=== PATIENT | female | born 1995 | race Caucasian/White ===

== ENCOUNTER 2018-04-05 09:54 | Emergency (ER) | payer OTHER ==
[2018-04-05 10:09] VITALS: Ht 162.6 cm
[2018-04-05 11:48] VITALS: BP 127/75
== END 2018-04-05 11:48 | disposition home or self-care (01) ==
LOC: ED 09:54
DX: S63.501A Unspecified sprain of right wrist, initial encounter (principal); J45.909 Unspecified asthma, uncomplicated; Z90.89 Acquired absence of other organs; Z88.0 Allergy status to penicillin; Z91.018 Allergy to other foods; W17.89XA Other fall from one level to another, initial encounter; Y93.89 Activity, other specified; Y92.89 Other specified places as the place of occurrence of the external cause; Y99.8 Other external cause status
CPT/HCPCS: Q0092

== ENCOUNTER 2018-05-18 10:36 | Emergency (ER) | payer OTHER ==
[~2018-05-18] VITALS: Ht 162.6 cm; Wt 70.3 kg
[2018-05-18 10:44] VITALS: Ht 162.6 cm; Wt 70.3 kg
[2018-05-18 11:25] LABS: BASOPHIL % 0.6 % (0-2); PLATELET COUNT 275 x10^3mcL (130-400); RED CELL DISTRIBUTION WIDTH 13.7 % (11.5-14.5)
[2018-05-18 11:26] LABS: CALCIUM 8.9 mg/dL (8.5-10.1); CARBON DIOXIDE 26.3 mmol/L (21-32); CHLORIDE SERUM 103 mmol/L (98-107); CREATININE SERUM 0.8 mg/dL (0.6-1.0); GFR1 > 60 mL/min; GLUCOSE SERUM 91 mg/dL (74-106); SODIUM SERUM 139 mmol/L (136-145)
[2018-05-18 11:39] LABS: ALBUMIN 4.1 g/dL (3.4-5.0); ALKALINE PHOSPHATASE 87 U/L (46-116); ALT/SGPT 16 U/L (14-59); AST/SGOT 6 U/L (15-37); BILIRUBIN TOTAL 0.46 mg/dL (0.20-1.00); T4(THYROXINE) 6.4 ug/dL (4.7-13.3)
[2018-05-18 13:31] LABS: AMPHETAMINE QUAL UR NONE DETECTED (See below)
[2018-05-18 16:40] VITALS: BP 112/63
== END 2018-05-18 17:37 | disposition home or self-care (01) ==
LOC: ED 10:36
PROVIDERS: Emergency Medicine
DX: G40.209 Localization-related (focal) (partial) symptomatic epilepsy and epileptic syndromes with complex partial seizures, not intractable, without status epilepticus (principal); R51 Headache; R53.1 Weakness; R20.2 Paresthesia of skin; J45.909 Unspecified asthma, uncomplicated; Z88.0 Allergy status to penicillin; Z91.018 Allergy to other foods; Z90.89 Acquired absence of other organs; Z87.42 Personal history of other diseases of the female genital tract
CPT/HCPCS: 36415

== ENCOUNTER 2018-12-06 17:00 | Emergency (ER) | payer OTHER ==
[~2018-12-06] VITALS: Ht 162.6 cm; Wt 73.9 kg
[2018-12-06 17:06] VITALS: Ht 162.6 cm; Wt 73.9 kg
[2018-12-06 18:01] LABS: BASOPHIL % 0.5 % (0-2); PLATELET COUNT 312 x10^3mcL (130-400)
[2018-12-06 18:21] LABS: CALCIUM 9.6 mg/dL (8.5-10.1); CARBON DIOXIDE 24.8 mmol/L (21-32); CHLORIDE SERUM 104 mmol/L (98-107); CREATININE SERUM 0.8 mg/dL (0.6-1.0); GFR1 > 60 mL/min; GLUCOSE SERUM 96 mg/dL (74-106); POTASSIUM SERUM 4.1 mmol/L (3.5-5.1); SODIUM SERUM 142 mmol/L (136-145)
[2018-12-06 18:26] LABS: AMPHETAMINE QUAL UR NONE DETECTED (See below)
[2018-12-06 18:26] LABS: ALBUMIN 4.3 g/dL (3.4-5.0); ALKALINE PHOSPHATASE 83 U/L (46-116); ALT/SGPT 13 U/L (14-59); AST/SGOT 5 U/L (15-37); BILIRUBIN TOTAL 0.29 mg/dL (0.20-1.00); TOTAL PROTEIN, SERUM 8.3 g/dL (6.4-8.2)
[2018-12-06 18:38] LABS: FREE T4 1.17 ng/dL (0.76-1.46); FREE THYROXINE INDEX 2.8 ug/dL (1.4-4.5); T4(THYROXINE) 7.9 ug/dL (4.7-13.3)
[2018-12-06 19:29] LABS: T3 TOTAL 1.24 ng/mL
[2018-12-06 22:57] VITALS: BP 127/88
== END 2018-12-06 22:57 | disposition home or self-care (01) ==
LOC: ED 17:00
PROVIDERS: Emergency Medicine
DX: R55 Syncope and collapse (principal); J45.909 Unspecified asthma, uncomplicated; K29.70 Gastritis, unspecified, without bleeding; Z88.8 Allergy status to other drugs, medicaments and biological substances; Z88.0 Allergy status to penicillin; Z90.89 Acquired absence of other organs
CPT/HCPCS: 84439; J2405; J2765; J3490; J7030; Q0092

== ENCOUNTER 2019-04-18 16:29 | Observation (INO) | payer OTHER ==
[~2019-04-18] VITALS: Ht 162.6 cm; Wt 73.9 kg
[2019-04-18 16:52] VITALS: Ht 162.6 cm; Wt 73.9 kg
--- NOTE | 2019-04-18 16:53 | NUR ---
PER PT STS THAT HE HAS AN "ABSENT SEIZURE" THIS AM AT 0900, WITNESSED BY HER FRIEND LASTING 60SEC, 1100 SEIZURE, 1200 SEIZURE, 1400 SEIZURE PT DID NOT HIT HEAD BUT STS THAT HE DOES NOT REMEMBER THE "ABSENT" SEIZURES. PT DENIES HAVIGN SEIZURES IN THE PAST. PT IS ALERT AND ORIENTED, SPEAKING IN CLEAR AND FULL SENTENCES. PT STS THAT SHE CAME TO THE ER DUE TO HER HAVING NUBNESS ON THE RT SIDE WITH "CHEST SHARPNESS" TO THE RT SIDE OF RIBS. PT [employer] WEAKNESS TO RT ARM/LEG. PERRRON NOTED. PT STS THAT SHE FEELS THAT SHE HAS BLURRY VISION TO RT EYE. PT PLACED ON FULL CM. NO DISTRESS NOTED. VSS. RESP E/U. DR. RANDOLPH AT BEDSIDE. WILL CONTINUE TO MONITOR.
[2019-04-18 17:55] LABS: microscopic required? YES; urine erythrocyte NEGATIVE (NEGATIVE)
[2019-04-18 18:10] LABS: BASOPHIL % 0.3 % (0-2); PLATELET COUNT 298 x10^3mcL (130-400); RED CELL DISTRIBUTION WIDTH 14.1 % (11.5-14.5)
[2019-04-18 18:11] LABS: CALCIUM 8.5 mg/dL (8.5-10.1); CARBON DIOXIDE 25.7 mmol/L (21-32); CHLORIDE SERUM 104 mmol/L (98-107); CREATININE SERUM 0.7 mg/dL (0.6-1.0); GFR1 > 60 mL/min; GLUCOSE SERUM 82 mg/dL (74-106); POTASSIUM SERUM 3.6 mmol/L (3.5-5.1); SODIUM SERUM 140 mmol/L (136-145)
[2019-04-18 18:16] LABS: ALKALINE PHOSPHATASE 78 U/L (46-116); ALT/SGPT 15 U/L (14-59); AST/SGOT 6 U/L (15-37); BILIRUBIN TOTAL 0.2 mg/dL (0.20-1.00); TOTAL PROTEIN, SERUM 8.1 g/dL (6.4-8.2)
--- NOTE | 2019-04-18 18:56 | NUR ---
PT TAKEN TO CT.
--- NOTE | 2019-04-18 19:13 | NUR ---
REPROT GIVEN TO SRAVAN TIPTON, TO ASSUME CARE OF PT.
--- NOTE | 2019-04-18 19:16 | NUR ---
PT BACK FROM CT VIA WHEELCHAIR. PT IN NAD, BREATHING EVEN AND UNLABORED. PT AWAKE AND ALERT. CM AND [address] WILL CONTINUE TO MONITOR.
--- NOTE | 2019-04-18 19:26 | NUR ---
PT C/O PAIN 10/10 IN BACK OF HEAD AND NECK. PT SPEAKING FULL CLEAR SENTENCES. PT NOTED SITTING ON GURNEY IN NAD WHILE PLAYING ON CELLULAR DEVICE. CM AND [address] WHITTEN MADE AWARE. NO FURTHER ORDERS AT THIS TIME. WILL CONTINUE TO MONITOR.
[2019-04-18 19:56] LABS: AMPHETAMINE QUAL UR NONE DETECTED (See below)
--- NOTE | 2019-04-18 19:58 | NUR ---
PT AMBULATED TO RESTROOM WITH STEADY GAIT.
[2019-04-18] MEDS ORDERED: VENTOLIN H0.09 MG/A1 INH (20:25)
--- NOTE | 2019-04-18 20:32 | NUR ---
PT RESTING ON GURNEY IN NAD. PT A&0X4, SPEAKING FULL CLEAR SENTENCES. PT BREATHING EVEN AND UNLABORED. CM AND [address] WILL CONTINUE TO MONITOR.
--- NOTE | 2019-04-18 21:40 | NUR ---
PT UP TO USE RESTROOM. PT AMULATES TO RESTROOM WITH STEADY GAIT. PT STILL NOTED LIMPING ON RIGHT LEG.
--- NOTE | 2019-04-18 22:34 | NUR ---
REPORT CALLED TO ILEANA TIPTON
--- NOTE | 2019-04-18 23:05 | NUR ---
PT TRANSFERED [facility]IA [facility] BY JOHANNY RN AND ALPHONSE EMT. PT A&0X4, SPEAKING FULL CLEAR SENTENCES. PT BREATHING EVEN AND UNLABORED. TRANSPORT CM IN PLACE. PT VERBALIZED UNDERSTANDING OF PLAN OF CARE. IV INTACT AND FLUSHES WITHOUT COMPLICATIONS. BELONGINGS SENT WITH PT.
[2019-04-19] VITALS (7 sets, daily range): BP systolic 99–120; BP diastolic 45–73
--- NOTE | 2019-04-19 00:34 | NUR ---
RECEIVED PT FROM ER, PT ADMIT FOR STROKE LIKE SYMPTOMS, MIGRAINE, PT IS A/O X4, VERBAL RESPONSIVE, RIGHT SIDE FACIAL DROOP NOTED. C/O RIGHT FACIAL NUMBNESS, RIGHT SIDE WEAKNESS NOTED. PT UNABLE TO LIFT RIGHT ARM OR RIGHT LEG. PT IS ON TELE 22, NSR, DENY ANY CHEST PAIN OR DISCOMFORT, BOWEL SOUND PRESENT ALL 4 QUADRANTS, NO DISTENTION, NO TENDER. PEDAL PULSE PRESENT BOTH FOOT, IV AT LEFT AC, NO LEAKING, NO INFILTRATION. ALL ADLS ASSIST, ALL NEED MET, CALL LIGHT IN REACH, WILL CONTINUE TO MONITOR.
--- NOTE | 2019-04-19 01:09 | NUR ---
HANGED INITIAL DOSE OF ROCEPHIN 1 GM, NO ADV REACTION, TYLENOL 500 MG PO GIVEN PER PRN ORDER FOR HEADACHE, CONT TO MONITOR.
--- NOTE | 2019-04-19 06:21 | NUR ---
PT SLEPT WELL, DENIES HEADACHE OR DIZZINESS, STILL WITH RT FACIAL DROOPING AND WEAKNESS. MRI ORDER SCHED BY RN ENCHILADA MAKER AWAITING FOR CALL BACK.
--- NOTE | 2019-04-19 07:05 | NUR ---
AAO X4.C/O H/A AT 8/10 PAIN SCALE.LUNGS CLEAR.ON SR ON THE MONITOR.HR=71.C/O R ARM WEAKNESS.IV SALINE LOCKED.CALL LIGHT WITHIN REACH.INSTRUCTED TO CALL FOR ANY PAIN/DISCOMFORT.WILL CONTINUE TO MONITOR PT.
--- NOTE | 2019-04-19 09:23 | NUR ---
GAVE PT IMITREX ORDERED X1 FOR C/O PERSISTENT H/A.WILL RECHECK AFTER AND HOUR.
--- NOTE | 2019-04-19 10:06 | NUR ---
SPOKE WITH OSTOMY CARE NURSE, PER MD DR BRANDON AUTHORIZATION APPROVED FOR MRI BRAIN. RADIOLOGY MADE AWARE, SET FOR THIS AFTERNOON.
[2019-04-19] MEDS ORDERED: IMITREX50 MG PO (10:13)
--- NOTE | 2019-04-19 10:15 | NUR ---
MRI QUESTIONS COMPLETED.
--- NOTE | 2019-04-19 10:23 | NUR ---
RECHECKED PAIN LEVEL CLAIMS H/A IS MORE TOLERABLE.WAS RELIEVED BY IMITREX.
[2019-04-19] MEDS ORDERED: FIORICET1 CAP PO (11:02)
--- NOTE | 2019-04-19 13:49 | NUR ---
GAVE PT FIORICET 1 TAB ORDERED PRN FOR C/O PERSISTENT H/A.ALSO INFORMED HER THAT MRI WILL BE DONE TONIGHT AT 9 PM INFORMED BY SOLAR RESOURCE ASSESSOR.
--- NOTE | 2019-04-19 14:19 | NUR ---
RECHECKED PT'S H/A.CLAIMS TO FEEL A LOT BETTER.ALSO INFORMED RN MORE EFFECTIVE THAN IMMETREX.
--- NOTE | 2019-04-19 16:00 | NUR ---
ASKED VAMP PRESSER IF IT'S OK TO DO SCAN EVEN THOUGH PT HAS DENTAL BRACE. PER VAMP PRESSER IS OK TO DO MRI.
--- NOTE | 2019-04-19 18:36 | NUR ---
NO SIGNIFICANT CHANGE NOTED.WILL ENDORSE TO NEXT SHIFT.
--- NOTE | 2019-04-19 20:00 | NUR ---
PT A/A/O X4. DENIES DIZZINESS C/O MILD HEADACHE. DENIES NEED FOR MEDICATION THUS FAR. NO FACIAL DROOPING NOTED. RIGHT SIDED WEAKNESS NOTED. RIGHT HAND TACKER ELASTIC BAND WEAKER THAN LEFT. BREATH SOUNDS CLEAR. BREATHING EVEN AND UNLABORED ON ROOM AIR. DENIES CHEST PAIN AND PRESSURE. BOWEL SOUNDS ACTIVE. NO C/O N/V AND ABD PAIN. IV HEPLOCK ON THE LAC. MADE PT COMFORTABLE. PLACED CALL LIGHT WITH IN REACH. WILL CONTINUE TO MONITOR.
--- NOTE | 2019-04-19 23:45 | NUR ---
PT C/O SEVERE HEADACHE. GAVE PT FIORECET PO. PT TOLERATED IT WELL. WILL CONTINUE TO MONITOR.
[2019-04-20 04:07] VITALS: BP 102/57
--- NOTE | 2019-04-20 06:04 | NUR ---
PT RESTING WITH EYES CLOSED. EASILY AROUSABLE WITH VERBAL STIMULI. NO C/O HEADACHE THUS FAR. MADE PT COMFORTABLE. WILL ENDORSE TO THE AM NURSE ACCORDINGLY.
--- NOTE | 2019-04-20 07:20 | NUR ---
RECEIVED PT IN BED A/A/OX4 C/O PERSISTANT MEJÍA. REPORTS BLURRED VISION AND DIZZINESS WITH ACTIVITY. NOTED WITH RT SIDED WEAKNESS WITH WEAK HAND PULP OPERATOR AND PLANTER FLEXION ON RT FOOT. REPORTS NUMBNESS TO RT SIDED ON UPPER EXTREMETY FROM ELBOW DOWN. PT AMBULATES WITH SHUFFELD GATE. NO FACIAL DROOP OR SPEECH IMPAIREMENT NOTED. RESP EVEN AND UNLABORED WITH CLEAR BS BILAT. DENIES ANY SOB/CP/PRESSURE AT THIS TIME. NSR ON TELE. NO EDEMA NOTED. ABD SOFT, NONTENDER WITH ACTIVE BS X4. DENIES ANY N/V AT THIS TIME. VOIDING FREELY. CALL LIGHT IN REACH NEEDS ATTENDED TO.
--- NOTE | 2019-04-20 08:15 | NUR ---
PT C/O 11/17 PRESSURE MEJÍA, MEDICATED WITH FIORICET PO PER EMAR. CONT TO MONITOR.
[2019-04-20 11:44] VITALS: BP 101/55
[2019-04-20 12:01] VITALS: BP 101/55
--- NOTE | 2019-04-20 13:34 | NUR ---
PT PROVIDED WITH D/C HOME INSTRUCTIONS GIVEN MEDICATION/PRESCRIPTION EDUCATION. MADE AWARE OF IMPORTANCE TO CALL AND MAKE APPT WITH PCP AND WITH NEUROLOGY TO F/U ON SYMPTOMS OUTPATIENT RECOMMENDED BY DR. JONES. PT STATED SHE HAS NEUROLOGIST AND F/U APPT. PT VERBALIZED UNDERSTANDING. TELE AND IV D/C'DE CATHETER INTACT. PT TRANSPORTED TO [facility] WITH ALL PERSONAL BELONGINGS IN HAND FREE OF ANY APPARENT DISTRESS.
== END 2019-04-20 14:05 | disposition home or self-care (01) | DRG 54 ==
LOC: ED 16:29 → DU 21:02 → EDBEDREQ 21:13 → DU 23:13
PROVIDERS: Emergency Medicine; ADMIT Internal Medicine Pulmonary Disease
DX: G43.109 Migraine with aura, not intractable, without status migrainosus (principal); J45.909 Unspecified asthma, uncomplicated; Z88.0 Allergy status to penicillin
CPT/HCPCS: G0378; J0696; J1200; J1885; J2765; J7030; J7050; Q9967

== ENCOUNTER 2019-08-19 10:15 | Emergency (ER) | payer OTHER ==
[~2019-08-19] VITALS: Ht 162.6 cm; Wt 79.4 kg
[~2019-08-19 10:15] MED LIST: FIORICET1 CAP PO; IMITREX50 MG PO; VENTOLIN H0.09 MG/A1 INH
[2019-08-19 10:36] VITALS: Ht 162.6 cm; Wt 79.4 kg
[2019-08-19 11:17] LABS: CALCIUM 8.8 mg/dL (8.5-10.1); CARBON DIOXIDE 28.6 mmol/L (21-32); CHLORIDE SERUM 104 mmol/L (98-107); CREATININE SERUM 0.7 mg/dL (0.6-1.0); GFR1 > 60 mL/min; GLUCOSE SERUM 75 mg/dL (74-106); SODIUM SERUM 138 mmol/L (136-145)
[2019-08-19 11:22] LABS: ALBUMIN 3.8 g/dL (3.4-5.0); ALKALINE PHOSPHATASE 87 U/L (46-116); ALT/SGPT 19 U/L (14-59); AST/SGOT 12 U/L (15-37); BILIRUBIN TOTAL 0.27 mg/dL (0.20-1.00); MAGNESIUM 1.9 mg/dL (1.8-2.4); TOTAL PROTEIN, SERUM 7.7 g/dL (6.4-8.2)
[2019-08-19 12:06] LABS: AMPHETAMINE QUAL UR NONE DETECTED (See below)
[2019-08-19 15:22] VITALS: BP 111/73
== END 2019-08-19 15:22 | disposition home or self-care (01) ==
LOC: ED 10:15
PROVIDERS: Emergency Medicine
DX: G40.909 Epilepsy, unspecified, not intractable, without status epilepticus (principal); Z88.0 Allergy status to penicillin; Z91.018 Allergy to other foods
CPT/HCPCS: 36415

== ENCOUNTER 2019-09-09 12:40 | Emergency (ER) | payer OTHER ==
[2019-09-09 14:42] VITALS: BP 116/71
== END 2019-09-09 14:40 | disposition home or self-care (01) ==
LOC: ED 12:40
DX: Z13.9 Encounter for screening, unspecified (principal); J45.909 Unspecified asthma, uncomplicated; Z88.0 Allergy status to penicillin; Z91.018 Allergy to other foods
CPT/HCPCS: Q0092